=== PATIENT | female | born 1975 | race Caucasian/White ===

== ENCOUNTER → 2017-08-12 | Emergency (ER) | payer OTHER ==
[~2017-08-12] VITALS: Ht 172.7 cm; Wt 108.9 kg
[~2017-08-12] MED LIST: ASA81 MG PO; CALCIUM500 M2; LIPITOR20 MG; LOSARTAN-HCTZ1 EAC1; NORFLEX100MG PO; SYNJARDY 5-1,01 EACH; SYNTHROID137 MCG
== END | disposition home or self-care (01) ==
LOC: ER 02:15
DX: R68.83 Chills (without fever) (principal); B34.9 Viral infection, unspecified

== ENCOUNTER → 2017-08-17 | Emergency (ER) | payer OTHER ==
[~2017-08-17] VITALS: Ht 172.7 cm; Wt 110.7 kg
== END | disposition home or self-care (01) ==
LOC: ER 14:35 → CPU-OBS 15:17
DX: R07.89 Other chest pain (principal); E03.8 Other specified hypothyroidism
CPT/HCPCS: G0379; 93005

== ENCOUNTER 2022-06-08 19:00 | Emergency (ER) | payer OTHER ==
[~2022-06-08] VITALS: Ht 170.2 cm; Wt 108.9 kg
[2022-06-08] MEDS ORDERED: ATENOLOL25 MG PO (20:16)
== END 2022-06-08 21:46 | disposition home or self-care (01) ==
LOC: EMR PED 19:00 → ER 19:08
DX: U07.1 COVID-19 (principal); Z91.013 Allergy to seafood